=== PATIENT | male | born 1965 | race American Indian/Alaskan Native ===

== ENCOUNTER 2019-05-10 10:36 | Emergency (ER) | payer SELFPAY ==
--- NOTE | 2019-05-10 12:25 | XRay Report ---
CHEST 2 VIEWS INDICATION / CLINICAL INFORMATION: Cough for 3 weeks. COMPARISON: None available. FINDINGS: SUPPORT DEVICES: None. HEART / MEDIASTINUM: The heart size is normal with a slight left ventricular configuration. Pulmonary vasculature is normal. LUNGS / PLEURA: No significant pulmonary or pleural abnormality. No pneumothorax. ADDITIONAL FINDINGS: There are moderate anterior and lateral hypertrophic changes throughout the thor acic spine. IMPRESSION: No acute pulmonary disease. Signer Name: Devante Wyman MD Signed: 05/10/2019 12:21 PM Workstation Name: [id number]
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
[2019-05-10 13:23] VITALS: BP 136/80
== END 2019-05-10 13:21 | disposition home or self-care (01) ==
LOC: ED 10:36
DX: J40 Bronchitis, not specified as acute or chronic (principal); F17.200 Nicotine dependence, unspecified, uncomplicated; Z79.899 Other long term (current) drug therapy
CPT/HCPCS: 71046